=== PATIENT | male | born 1990 | race Caucasian/White ===

== ENCOUNTER 2024-10-14 19:30 | Emergency (ER) | payer SELFPAY ==
[~2024-10-14] VITALS: Ht 195.6 cm; Wt 106.7 kg
--- NOTE | 2024-10-14 20:00 | ED.PDOC ---
HPI Comments PT PRESENTED TO ED FOR RIGHT LATERAL ABDOMEN LACERATION X1 HOUR. PT STATED HIS DOG RAN OUT THE HOUSE, WAS APPROACHING ANOTHER PERSON, PT WAS ATTEMPTING TO MENDIETA AND GRAB DOG, WHEN DOOR KNOB IMPALED INTO RIGHT MEDIAL ABDOMEN. FATTY TISSUE EXPOSURE. BLEEDING CONTROLLED IN TRIAGE. Chief Complaint: Laceration Time Seen by MD: 19:33 Primary Care Provider: UNKNOWN Reviewed Notes: Nurses Notes, Medications, Allergies Allergies: Coded Allergies: Amoxicillin (Verified Allergy, Unknown, 10/14/24) Home Meds Active Scripts Ibuprofen (Ibuprofen) 800 Mg Tab, 800 MG PO Q8HP PRN for 4 Days, #12 TAB Prov:PRASANTH,YUNG PPAP COORDINATOR 10/14/24 Doxycycline Hyclate (Doxycycline Hyclate) 100 Mg Cap, 100 MG PO BID for 7 Days, #14 CAP Prov:YUNG RADER PPAP COORDINATOR 10/14/24 Information Source: Patient Mode of Arrival: Ambulatory Complexity: Intermediate Laceration Length (cm): 2 Past Medical History PAST MEDICAL HISTORY: Denies Surgical History: Denies all surgeries Family History Family History: Unobtainable Social History Lives In: Home Constitutional: denies: chills, diaphoresis, fatigue, fever, malaise, sweats, weakness, others EENTM: denies: blurred vision, double vision, ear bleeding, ear discharge, ear drainage, ear pain, ear ringing, eye pain, eye redness, hearing loss, mouth pain, mouth swelling, nasal discharge, nose bleeding, nose congestion, nose pain, photophobia, tearing, throat pain, throat swelling, voice changes, others Respiratory: denies: cough, hemoptysis, orthopnea, SOB at rest, shortness of breath, SOB with excertion, stridor, wheezing, others Cardiovascular: denies: chest pain, dizzy spells, diaphoresis, Dyspnea on exertion, edema, irregular heart beat, left arm pain, lightheadedness, palpitations, PND, syncope, others Gastrointestinal: denies: abdomen distended, abdominal pain, blood streaked bowels, constipated, diarrhea, dysphagia, difficulty swallowing, hematemesis, melena, nausea, poor appetite, poor fluid intake, rectal bleeding, rectal pain, vomiting, others Genitourinary: denies: burning, dysuria, flank pain, frequency, hematuria, incontinence, penile discharge, penile sore, pain, testicle pain, testicle swelling, urgency, others Neurological: denies: dizziness, fainting, headache, left sided numbness, left sided weakness, numbness, paresthesia, pre-existing deficit, right sided numbness, right sided weakness, seizure, speech problems, tingling, tremors, weakness, others Musculoskeletal: denies: back pain, gout, joint pain, joint swelling, muscle pain, muscle stiffness, neck pain, others Integumetry: reports: laceration (RIGHT FLANK ); denies: bruises, change in color, change in hair/nails, dryness, lesions, lumps, rash, wounds, others Allergic/Immunocompromised: denies: Difficulty Healing, Frequent Infections, Hives, Itching, others Hematologic/Lymphatic: denies: anemia, blood clots, easy bleeding, easy bruising, swollen glands, others Endocrine: denies: excessive hunger, excessive sweating, excessive thirst, excessive urination, flushing, intolerance to cold, intolerance to heat, unex plained weight gain, unexplained weight loss, others Psychiatric: denies: anxiety, bipolar disorder, depression, hopeless, panic disorder, schizophrenia, sleepless, suicidal, others Physical Exam General Appearance: No Apparent Distress, Normal HEENT: Normal ENT Inspection, Pharynx Normal Neck: Full Range of Motion, Non-Tender Respiratory: Chest Non-Tender, Lungs Clear, No Accessory Muscle Use, No Respiratory Distress, Normal Breath Sounds Cardiovascular: No Edema, No JVD, No Murmur, No Gallop, Normal Peripheral Pulses, Regular Rate/Rhythm Breast Exam: Deferred Gastrointestinal: No Organomegaly, Non Tender, No Pulsatile Mass, Normal Bowel Sounds, Soft Genitalia: Deferred Pelvic: Deferred Rectal: Deferred Extremities: Normal capillary refill, Normal inspection, Normal range of motion, Non-tender, No pedal edema Musculoskeletal : Apperance: Normal Neurologic: Alert, ems driver II-XII nml as Tested, No Motor Deficits, Normal Affect, Normal Mood, No Sensory Deficits Cerebellar Function: Normal Reflexes: Normal Skin: Dry, Lacerations (1.5 INCH LACERATION TO RIGHT FLANK BLEEDING CONTROLLED NO OBVIOUS FOREIGN BODY.), Normal Color, Warm Lymphatic: No Adenopathy Was a procedure done? Was a procedure done?: Yes Sedation Sedation?: No Informed consent obtained: Yes Laceration Repair : Location RIGHT FLANK LOVE HANDLE AREA Length 1.5 INCH Anesthetic: Lidocaine, Without epi Laceration Repair Prep: Saline, by Irrigation Laceration Repair Wound Comple: epidermis/dermis repair Laceration Repair: Number of sutures (11), Simple Informed consent obtained: Yes Risks, benefits, and alternati: Yes Notes PATIENT TOLERATED WELL WITH MINIMAL BLOOD LOSS Differential diagnosis Generic Laceration: Retained Foriegn Body, Neurovascular Injury, Tendon Injury, Avulsion X-Ray, Labs, Meds, VS Vital Signs Date Time Temp Pulse Resp B/P (MAP) Pulse Ox O2 Delivery O2 Flow Rate FiO2 10/14/24 20:20 98.4 98 18 139/91 (107) 99 98.4 10/14/24 20:20 98 18 99 Room Air 10/14/24 19:43 98.4 107 18 151/97 (115) 99 98.4 Current Medications Medications (Trade) Dose Ordered Sig/Delicia Route Start Time Stop Time Status Last Admin Oxycodone/ Acetaminophen (Percocet 5/ 325MG Tablet) 1 tab ONCE ONCE PO 10/14/24 20:00 10/14/24 20:06 DC 10/14/24 20:20 X-Ray, Labs, Meds, VS Comment SEE PROCEDURE NOTE. TDAP GIVEN. NORCO 10 MG P.O. SCRIPT PROPHYLACTIC ANTIBIOTICS ADVISED TO TAKE MEDICATION PRESCRIBED SIDE EFFECTS DISCUSSED. SUTURE REMOVAL IN 5-7 DAYS. FOLLOW UP 2 DAYS FOR WOUND RE-EVALUATION WITH PCP URGENT CARE OR BACK HERE IN THE ER. ER RETURN PRECAUTIONS GIVEN FOR UNCONTROL LED BLEEDING OR SIGNS AND SYMPTOMS OF INFECTION. PATIENT INDICATES UNDERSTANDING AND AGREES WITH DISCHARGE PLAN OF CARE. Time of 1ST Reevaluation: 19:30 Reevaluation 1ST: Unchanged Time of 2ND Reevaluation: 21:15 Reevaluation 2ND: Improved Patient Education/Counseling: Diagnosis, Treatment, Prognosis, Need For Follow Up Family Education/Counseling: Diagnosis, Treatment, Prognosis, Need For Follow Up Departure 1 Departure Time of Disposition: 21:15 Impression: Primary Impression: Laceration of trunk Disposition: 01 HOME / SELF CARE / HOMELESS Condition: Stable e-Prescriptions Ibuprofen (Ibuprofen) 800 Mg Tab 800 MG PO Q8HP PRN for 4 Days, #12 TAB Prov: YUNG RADER PPAP COORDINATOR 10/14/24 Doxycycline Hyclate (Doxycycline Hyclate) 100 Mg Cap 100 MG PO BID for 7 Days, #14 CAP Prov: YUNG RADER PPAP COORDINATOR 10/14/24 Discharged With: Significant Other Critical Care Note Critical Care Time?: No Stability Stability form required: YUNG Nickerson October 14, 2024 20:00
[2024-10-14] MEDS: LIDOCAINE 1% HCL (LOCAL ANESTH.) INJ 20ML MDV ID ONE (20:19)
[2024-10-14 20:20] VITALS: BP 139/91; PULSE 98; RESP 18; TEMP 98.4; O2SAT 99
[2024-10-14] MEDS: OXYCODONE W/ ACETAMINOPHEN 5/325MG TABLET PO ONE (20:20)
[2024-10-14] MEDS ORDERED: DOXY100C4 PO (21:18)
[2024-10-14] MEDS ORDERED: IBUP-1456 PO (21:18)
[2024-10-14] MEDS: TETANUS-DIPTH-ACEL PERTUSSIS 0.5ML SYR Tdap IM ONE (21:26)
== END 2024-10-14 21:30 | disposition home or self-care (01) ==
LOC: ER 19:41 → EEVIPCON 19:41 → ER 21:30
DX: S31.119A Laceration without foreign body of abdominal wall, unspecified quadrant without penetration into peritoneal cavity, initial encounter (principal); Z88.1 Allergy status to other antibiotic agents; X58.XXXA Exposure to other specified factors, initial encounter; Y93.02 Activity, running; Y92.89 Other specified places as the place of occurrence of the external cause; Y99.8 Other external cause status
CPT/HCPCS: 12002; 90471; 90715; 99283; J2003